=== PATIENT | female | born 1960 | race Caucasian/White ===

== ENCOUNTER → 2016-11-26 | Day surgery (SDC) | payer OTHER ==
[~2016-11-26] MED LIST: ACETAMINOPHEN 1000 MG/100 ML VIAL IV ONE; ACETAMINOPHEN/HYDROcodone 325 MG/5 MG TAB ONE; BACITRACIN IM FOR SOLN 50,000 UNIT VIAL ONE; GENTAMICIN SULFATE 80 MG/2 ML VIAL ONE; KETOROLAC TROMETHAMINE 30 MG/ML (IVP) VIAL ONE; LACTATED RINGER'S 1,000 ML BAG IV ONE; LACTATED RINGER'S 1000 ML INJ 1,000 ML ONE; LIDOCAINE 1%/EPINEPHrine 1:100,000 SOLN 20 ML VIAL ONE; LIDOCAINE 1%/EPINEPHrine 1:100,000 SOLN 30 ML VIAL INFIL ONE; MEPERIDINE HCL 50 MG/ML VIAL ONE; MIDAZOLAM HCL 2 MG/2 ML VIAL ONE; MORPHINE SULFATE 4 MG/ML INJ ONE; ONDANSETRON HCL 4 MG/2 ML VIAL IV PUSH ONE; PROPOFOL 200 MG/20 ML AMP IV ONE; SODIUM CHLORIDE 0.9% 20 ML VIAL ONE; ceFAZolin INJ 1,000 MG VIAL ONE
--- NOTE | 2016-11-26 09:36 | TN ---
cc: NAEEM GARZA M.D. DATE OF SURGERY: 11/26/2016 PHYSICIAN: Dr. Garza. PREOPERATIVE DIAGNOSIS Rupture right implant and capsule contraction. POSTOPERATIVE DIAGNOSIS Rupture right implant and capsule contraction. PROCEDURE: Bilateral removal of breast implant material and full capsulectomy bilateral, full lateral and inferior capsulorrhaphy bilateral. SURGEON Naeem Garza MD. ANESTHESIA LMA general. Local total of 60 cc of 1% lidocaine with epinephrine. ESTIMATED BLOOD LOSS: Minimal. DRAINS: 7 mm MANDY drains COMPLICATIONS None. PROCEDURE: The patient was marked, consented, marked anesthetized the skin was sterilized with Betadine solution. Local anesthetic was infiltrated through a 4.5 to 5 cm inframammary incision. Attention was directed to the left breast implant were finding a significant calcified capsule and a level 2/3 capsule contraction full capsulectomy was performed. The implant however although intact was "bleeding". After proper irrigation and lateral inferior capsulorrhaphies were carried out and closure of the wound was done after bringing a 7 mm MANDY through a separate stab wound utilizing 2-0 Monocryl sutures in the breast parenchyma, dermis and Subcu. Attention was directed to the right breast where through the similar inframammary incision the capsulectomies were properly done, it is to be noted that the patient did have some serosanguineous fluid. This was properly drained with a flip free silicone in the capsule. This was properly drained in its totality. Cultures were obtained and a full capsulectomy was done Finally, cultures were obtained and a full capsulectomy was done to be mentioned that the capsule did tracked superiorly into the axillary area and will be tracked as much as capsulectomies possible a appears that we achieved that. I have performed multiple rows of 2-0 Monocryl suture in the anterior axillary line to obliterate the space. Gale was also utilized to minimize the oozing and a 7 mm MANDY was brought out also through a separate stab wound. Good hemostasis was achieved with this I proceeded and closed the wounds as previously mentioned with 2-0 Monocryl suture as well. Mastisol Steri-Strips were applied a compression dressing was applied thereafter along with a brassiere. Overall the patient tolerated the procedure well. She was awakened, extubated in the operating room transferred back to postanesthesia care unit in stable condition. No complications appreciated. The patient tolerated the procedure fairly well. MD LIANET Tomlin/vidhi /9:13 AM /9:19 AM
== END | disposition home or self-care (01) ==
LOC: ESDC 06:12
PROVIDERS: ATTEND Plastic Surgery
DX: Z41.1 Encounter for cosmetic surgery (principal)
CPT/HCPCS: 00400; 19328; 87070; 87205; 88305; J0131; J0690; J1580; J1885; J2175; J2250; J2270; J2405; J3010; J7120